=== PATIENT | male | born 1955 | race Caucasian/White ===

== ENCOUNTER 2024-02-19 15:32 | Emergency (ER) | payer SELFPAY ==
[2024-02-19 15:44] VITALS: BP 175/83; PULSE 81; RESP 22; TEMP 36.8; O2SAT 97; BMI 39.1
--- NOTE | 2024-02-19 15:51 | XR_ITS ---
FINAL REPORT CLINICAL HISTORY: lifting heavy overhead, pop, pain down R arm FINDINGS: RIGHT HUMERUS 2 views were obtained. There is no acute fracture or dislocation. There are moderate degenerative changes of the shoulder joint. Visualized joint spaces are normally aligned. Soft tissues are unremarkable. IMPRESSION: No acute bony abnormality. Reviewed, Interpreted and Dictated by Lamont Jameson III, MD Transcribed by Jeannie Barajas Authenticated and [facility]
--- NOTE | 2024-02-19 15:51 | CT_ITS ---
FINAL REPORT TECHNIQUE: Axial images were obtained from skull base to the thoracic inlet by computed tomography. Coronal and sagittal reconstruction process performed. This study was performed with techniques to keep radiation doses as low as reasonably achievable (ALARA). Individualized dose reduction techniques using automated exposure control or adjustment of mA and/or kV according to the patient''s size were employed. CLINICAL HISTORY: lifting heavy overhead, pop, pain down R arm FINDINGS: There is no acute fracture or subluxation. There are moderate degenerative changes. A large calcification is seen in the region of the anterior longitudinal ligament extending from C2-C6. There is mild central canal stenosis of C5-6. The disc spaces are preserved. The facets are normally aligned. Soft tissue is seen adjacent to the dens which may present to CPPD. Limited images of the lung apices are unremarkable. IMPRESSION: No acute fracture. Calcification in the region of the anterior longitudinal ligament. Mild central canal stenosis at C5-6. Soft tissue adjacent to the dens which may have present CPPD. Reviewed, Interpreted and Dictated by Lamont Jameson III, MD Transcribed by Jeannie Barajas Authenticated and [facility]
--- NOTE | 2024-02-19 15:51 | XR_ITS ---
FINAL REPORT CLINICAL HISTORY: lifting heavy overhead, pop, pain down R arm FINDINGS: RIGHT SHOULDER: 3 views of the right shoulder were obtained. There is no acute fracture or dislocation.There are moderate degenerative changes of the acromioclavicular and glenohumeral joints. The joint spaces are intact. There is no soft tissue abnormality. IMPRESSION: No acute fracture Reviewed, Interpreted and Dictated by Lamont Jameson III, MD Transcribed by Jeannie Barajas Authenticated and [facility]
--- NOTE | 2024-02-19 15:51 | CT_ITS ---
FINAL REPORT CLINICAL HISTORY: lifting heavy overhead, pop, pain down R arm FINDINGS: Axial CT images of the thoracic spine were obtained without contrast. Sagittal and coronal reformatted images were also obtained. This study was performed with techniques to keep radiation doses as low as reasonably achievable (ALARA). Individualized dose reduction techniques using automated exposure control or adjustment of mA and/or kV according to the patient''s size were employed. There is a mild chronic T11 compression fracture. No acute fractures seen. There are moderate to severe degenerative changes with multilevel osteophytes likely representing DISH. The vertebral alignment is normal. No paraspinous soft tissue abnormality is identified. The left posterior pleural catheter is noted. IMPRESSION: No fracture or acute bony abnormality. Moderate to severe degenerative changes with multilevel osteophytes likely representing DISH. Reviewed, Interpreted and Dictated by Lamont Jameson III, MD Transcribed by Jeannie Barajas Authenticated and [facility]
--- NOTE | 2024-02-19 15:59 | ED_ITS ---
Discharge Plan Disposition Patient Disposition: Home, Self-Care Condition: Good Prescriptions Prescriptions: New methocarbamol 750 mg tablet 750 mg PO Q8H Qty: 20 0RF naproxen 500 mg tablet 500 mg PO BID Qty: 20 0RF lidocaine [Lidoderm] 5 % adhesive patch,medicated 1 patch topical DAILY Qty: 15 0RF Rx Instructions: leave on most painful area for up to 12 hrs Referrals Follow up/Referrals: Evaristo Rdz MD [Primary Care Provider] - See instructions Activity Restrictions/Add. Instructions Additional Instructions/Restrictions: You were evaluated in the emergency department today. Please follow-up with orthopedics closely. 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 Return to the emergency department for new or worsening symptoms. Clinical Impressions Clinical Impression: DISH (diffuse idiopathic skeletal hyperostosis), Cervical spinal stenosis, Right shoulder strain, Radiculopathy Stand Alone Forms Stand Alone Forms: Work/School Release Instructions Patient Instructions: DI for Shoulder Sprain, DI for Shoulder Pain Print Language Print Language: Irish Discharge ED Provider: Daniela Mcgarry General Adult HPI General Chief complaint: Extremity Injury, Upper Stated complaint: WC02/18 RT shoulder, arm pain Time Seen by Provider: 02/19/24 15:41 Mode of Arrival: Ambulatory Source of Information: Patient Limitations: No Limitations Description of Symptoms (Recalled from ER Triage Doc. by RN): Pt reported to ED with cc of right shoulder and right arm pain. Pt states he was at work and was pulling parts off the shelf when he got a sharp pain that he decribed as being located in the joint that radiates down to his forearm. History of Present Illness HPI narrative: This patient is a 68-year-old male who reports a history of CAD and multiple sclerosis presenting to the emergency department for evaluation with concern for right shoulder/upper back pain radiating down his right arm. He states that he was lifting something overhead at work pulling parts off of a shelf when he experienced a sudden sharp pain that was right shoulder joint and radiated down his right arm. He also has some pain around his right shoulder blade. He feels the most pain in his right shoulder joint going down his right arm, and pain is worse with movement. No new numbness, tingling, or other concerns. No other injuries noted. He was well prior to this. Related Data Previous Rx's ?Medication ?Instructions ?Recorded lidocaine 5 % topical patch 1 patch topical DAILY #15 ea 02/19/24 (Lidoderm) methocarbamol 750 mg tablet 750 mg PO Q8H #20 tabs 02/19/24 naproxen 500 mg tablet 500 mg PO BID #20 tabs 02/19/24 Allergies Allergy/AdvReac Type Severity Reaction Status Date / Time No Known Allergies Allergy Unverified 02/19/24 15:55 [facility] Disclaimer: The information contained in this section may have been updated after the patient was seen, as this information can be updated by other users. Social History Smoking Status: Never smoker alcohol intake: never current occupational status: employed Travel in the last 8 weeks: None ROS Obtained: Yes All systems reviewed & no additional complaints except as documented Physical Exam General General appearance: alert and in no apparent distress Head Head exam: atraumatic and normocephalic Eye Eye exam: Present normal appearance, PERRL and EOMI ENT ENT exam: Present normal exam, normal oropharynx, mucous membranes moist and normal external ear exam Neck Neck exam: Present normal inspection, full ROM and trachea midline; Absent tenderness Chest Chest inspection: Present normal inspection and symmetric chest wall rise; Absent tenderness Respiratory Respiratory exam: Present normal lung sounds bilaterally; Absent respiratory distress, wheezes, stridor or accessory muscle use Cardiovascular Cardiovascular exam: Present regular rate and normal rhythm Abdominal Exam Abdominal exam: Present soft; Absent distention, tenderness or guarding Extremities Exam Extremities exam: Present tenderness and normal capillary refill; Absent full ROM or edema Expanded Upper Extremity Exam Right: Shoulder exam: Present tenderness; Absent full ROM Arm exam: Present normal inspection and full ROM Comment: Patient has limited range of motion of the right shoulder secondary to pain and also tenderness to palpation over the right shoulder joint, especially at the superior aspect. All compartments are soft. No obvious bruising or deformities. He has full intact range of motion of his elbow joint, wrist, and fingers. He is neurovascularly intact. Back Exam Back exam: Present normal inspection and full ROM; Absent tenderness Neurological Exam Neurological exam: Present alert, oriented X3, CN II-XII intact and normal gait; Absent motor sensory deficit Psychiatric Psychiatric exam: Present normal affect and normal mood Skin Skin exam: Present warm and dry Medical Decision Making Medical Records Medical records reviewed: Yes I reviewed the patient's medical records. [place] Inquiry Pt receiving controlled substance: No Vital Signs: 02/19/24 15:44 02/19/24 17:39 02/19/24 18:19 Temperature 98.3 F 98.3 F Temperature Source Oral Oral Pulse Rate 81 78 Pulse Rate [Right Radial] 81 Respiratory Rate 22 18 Blood Pressure 183/92 H 174/83 H Blood Pressure [Left Arm] 175/83 H Blood Pressure Mean [Left Arm] 113 Blood Pressure Source Automatic Cuff Blood Pressure Source [Left Arm] Automatic Cuff Blood Pressure Position Sitting 02 Sat by Pulse Oximetry 97 97 Oxygen Delivery Method Room Air Room Air Room Air Lab Data Lab results reviewed: Yes I reviewed the patient's lab results. Orders (Tests/Meds): ED MEDICATIONS Discontinued Medications Generic Name Dose Route Start Last Admin Trade Name Freq PRN Reason Stop Dose Admin Acetaminophen 1,000 mg 02/19/24 15:51 02/19/24 16:18 Acetaminophen 500mg Tab PO 02/19/24 15:52 1,000 mg ONCE ONE Administration Ketorolac Tromethamine 30 mg 02/19/24 15:51 02/19/24 16:18 Ketorolac 30mg/Ml Vial IM 02/19/24 15:52 30 mg ONCE ONE Administration Lidocaine 1 each 02/19/24 15:51 02/19/24 16:18 Lidocaine 5% Transdermal Patch TP 02/19/24 15:52 1 each ONCE ONE Administration ORDERS Category Date Time Status CT cervical spine wo con Stat Cat Scan 02/19/24 15:[address] thoracic spine wo con Stat Cat Scan 02/19/24 15:51 Completed Humerus XR right [XR humerus RT] Stat Exams 02/19/24 15:51 Completed Shoulder XR right miminum 2 views [XR shoulder RT min Exams 02/19/24 15:51 Completed 2V] Stat Medical Decision Narrative: In summary, this patient is a 68-year-old male presenting to the Emergency Department for evaluation of right upper back/shoulder injury. Differential diagnoses considered include but are not limited to cervical radiculopathy, thoracic radiculopathy, rotator cuff injury, musculoskeletal strain/sprain, fracture, disc herniation. Ruling out the most morbid conditions drove assessment. On exam, the patient is well-appearing. He has tenderness to palpation of the right shoulder joint and limited range of motion of the right shoulder secondary to pain, but no other obvious external signs of trauma. He is neurovascularly intact with full intact range of motion of his elbow, wrist, and hand. Workup included CT C and T-spine without contrast as well as x-rays of the right shoulder and right upper arm. He was given oral Tylenol, IM Toradol, and a topical iron patch for symptomatic improvement of pain. I independently interpreted x-ray and CT prior to the radiologist read and noted no obvious acute fracture. Please see their read for final interpretation. On reassessment, the patient is resting company and remains neurovascularly intact. He was incidentally found to have arthritic changes and potential diffuse idiopathic skeletal hyperostosis, which I notified him of. At this time, feel we have excluded life-threatening pathology and he is appropriate for discharge home with close follow-up with orthopedics and primary care. He was given strict return precautions and instructions for supportive management. Critical Care Critical Care Time Critical Care Time: No
[2024-02-19] MEDS: ACETAMINOPHEN 500MG TAB 1000 MG PO (16:18)
[2024-02-19] MEDS: LIDOCAINE 5% TRANSDERMAL PATCH 1 EACH TP (16:18)
[2024-02-19] MEDS: KETOROLAC 30MG/ML VIAL 30 MG IM (16:18)
[2024-02-19 17:39] VITALS: BP 183/92; PULSE 81; O2SAT 97
--- NOTE | 2024-02-19 17:42 | PC.NURSE ---
Rounded on pt. Pt ambulatory to bathroom. No other needs voiced call light within reach.
[2024-02-19 18:19] VITALS: BP 174/83; PULSE 78; RESP 18; TEMP 36.8; O2SAT 98
== END 2024-02-19 18:19 | disposition home or self-care (01) ==
PROVIDERS: Emergency Provider Emergency Medicine; PCP Family Medicine
DX: S46.911A Strain of unspecified muscle, fascia and tendon at shoulder and upper arm level, right arm, initial encounter (principal); M48.14 Ankylosing hyperostosis [Forestier], thoracic region; M48.02 Spinal stenosis, cervical region; M54.12 Radiculopathy, cervical region; M79.621 Pain in right upper arm; M25.511 Pain in right shoulder; X50.0XXA Overexertion from strenuous movement or load, initial encounter
CPT/HCPCS: 72125; 72128; 73030; 73060; 96372; 99285; J1885